=== PATIENT | male | born 1975 | race Caucasian/White ===

== ENCOUNTER → 2021-04-26 | Day surgery (SDC) | payer MEDICARE ==
[~2021-04-26] MED LIST: ABILIFY2 MG PO; ALPRAZOLA PO; ASPIRIN81 MG PO; AUGMENTIN875TAB OR; BENZTROPINE0.5 MG PO; BUPROPN HCL300 MG PO; BUSPIRONE HCL30 MG OR; EFFEXOR75 MG PO; KEFLEX500 MG PO; LAMICTAL ODT50 MG PO; LAMICTAL200 M1 PO; LATUDA20 MG; LEXAPRO20 MG PO; LITHIUM CARBON450 MG PO; LOSARTAN POTASS50 MG PO; METFORMIN500 M2 PO; MINERAL PO; MUPIROCIN2 % EX; PERCOCET 5/325M1 TAB PO; PRESTIQUE PO; PROZAC40 MG PO; QUETIAPINE FUM300 MG PO; RISPERIDONE3 MG PO; SMZ-TMP DS1 TAB PO; STOOL SOFTENER100 M1 PO; TEMAZEPAM30 MG PO; TIZANIDINE HYDRO2 M1 PO; TOBRAMYCIN0.3 % OS; TRAZODONE100 MG PO; VISTARIL50 MG PO; ZYPREXA20 MG OR
[2021-04-26 13:53] VITALS: BP 121/67
== END | disposition home or self-care (01) ==
LOC: ENDO 08:41 → ORM 11:00
PROVIDERS: ATTEND Surgery
PROC: 0DBL8ZX Excision of Transverse Colon, Via Natural or Artificial Opening Endoscopic, Diagnostic (ICD-10-PCS; principal; 2021-04-26)
DX: D12.3 Benign neoplasm of transverse colon (principal); K64.8 Other hemorrhoids; I10 Essential (primary) hypertension; E11.9 Type 2 diabetes mellitus without complications

== ENCOUNTER 2021-05-30 10:05 | Day surgery (SDC) | payer MEDICARE ==
[~2021-05-30 10:05] MED LIST changes: -PERCOCET 5/325M1 TAB PO
[2021-05-30] MEDS ORDERED: PERCOCET 5/325M1 TAB PO (12:40)
[2021-05-30 13:16] VITALS: BP 115/68
== END 2021-05-30 13:30 | disposition home or self-care (01) ==
LOC: ORM 10:05
PROVIDERS: ATTEND Surgery
PROC: 0D8R3ZZ Division of Anal Sphincter, Percutaneous Approach (ICD-10-PCS; principal; 2021-05-30)
PROC: 0DBQXZZ Excision of Anus, External Approach (ICD-10-PCS; 2021-05-30)
PROC: 0HB4XZZ Excision of Neck Skin, External Approach (ICD-10-PCS; 2021-05-30)
PROC: 0HB5XZZ Excision of Chest Skin, External Approach (ICD-10-PCS; 2021-05-30)
DX: K60.2 Anal fissure, unspecified (principal); K64.4 Residual hemorrhoidal skin tags; L91.8 Other hypertrophic disorders of the skin; I10 Essential (primary) hypertension; E11.9 Type 2 diabetes mellitus without complications; F17.200 Nicotine dependence, unspecified, uncomplicated
CPT/HCPCS: C9290